=== PATIENT | female | born 1960 | race Caucasian/White ===

== ENCOUNTER 2019-12-26 19:19 | Emergency (ER) | payer SELFPAY ==
[~2019-12-26] VITALS: Ht 165.1 cm; Wt 81.6 kg
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
--- NOTE | 2019-12-26 19:44 | NUR ---
PT BROUGHT TO CT
--- NOTE | 2019-12-26 20:55 | NUR ---
PT IS MEDICALLY STABLE FOR D/C PER MD. Patient discharged to home in stable condition. Rx and Written and verbal after care instructions given. Patient verbalizes understanding of instruction. DAUGHTER WILL PROVIDE RIDE TO THE PT
[2019-12-26 20:56] VITALS: BP 121/68
== END 2019-12-26 20:55 | disposition home or self-care (01) ==
LOC: ER 19:19
DX: S39.012A Strain of muscle, fascia and tendon of lower back, initial encounter (principal); S09.8XXA Other specified injuries of head, initial encounter; R51 Headache; E03.9 Hypothyroidism, unspecified; V49.49XA Driver injured in collision with other motor vehicles in traffic accident, initial encounter; Y93.89 Activity, other specified; Y92.488 Other paved roadways as the place of occurrence of the external cause; Y99.8 Other external cause status
CPT/HCPCS: 70450-TC; 72100-TC; 72125-TC